=== PATIENT | female | born 2000 | race Caucasian/White ===

== ENCOUNTER 2020-04-02 07:43 | Inpatient (IN) | payer OTHER ==
[~2020-04-02] VITALS: Ht 160 cm; Wt 75.6 kg
[2020-04-02] VITALS (18 sets, daily range): BP systolic 90–115; BP diastolic 51–67
[2020-04-02] MEDS ORDERED: PRENTAB9 PO (08:05)
[2020-04-02] MEDS ORDERED: LACTATED RINGER'S 1000 ML IV STA (09:03)
[2020-04-02] MEDS ORDERED: OXYTOCIN DRIP 30 UNITS in IV 1 EA IV SCH (09:15)
[2020-04-02 09:36] LABS: HEMATOCRIT 34.2 % (36.0-47.0); HEMOGLOBIN 11.3 g/dl (12.0-15.5); MEAN CORPUSCULAR HEMOGLOBIN 31.8 pg (27.0-33.0); MEAN CORPUSCULAR VOLUME 96.3 fl (80.0-96.0); PLATELET COUNT, AUTOMATED 180 10^3/uL (150-450); RED BLOOD COUNT 3.55 10^6/uL (4.00-5.40); WHITE BLOOD COUNT 12.1 10^3/uL (4.0-10.0)
--- NOTE | 2020-04-02 10:00 | HPEPDOC ---
Obstetrical History & Physical General Date of Admission Apr 02, 2020 at 07:43 History of Present Illness 19 yo at 39w0d with ANDREA of 09 APR 2020 presents to L&D for IOL for IUGR. He r is also complicated by circumvallate placenta. She is feeling well and is without any complaints at this time. She denies contractions, leaking of fluid, vaginal bleeding, and reports positive movement. Chief Complaint: Other (IOL for IUGR) Information Provided By: Patient Age: 19 : 1 Term: 0 Pre-term: 0 Abortions: 0 Livin Care Care: Good Care Dating Final EDC: Apr 09, 2020 Final EDC for Daily Update: Apr 09, 2020 Final EDC by: 1st trimester (US) LMP: July 04, 2019 1st Trimester Date: Sep 30, 2019 Weeks + Days: 12 (+4) Estimated Date of Confinement: Apr 09, 2020 EGA at Admission: 39 (+0) Antepartum Course Height (inches): 63 Pre- weight (lbs.): 130 Admission Weight (lbs.): 161 Change in Weight (lbs.): 31 Past Medical History Past Obstetrical History : Past Obstetrical History: Primgravida [employer] History: No pertinent history Past Medical History Medical History Hx of asthma in childhood, seizures in childhood, hx of syncope as a teen, and hx of marijuana use as a teen Surgical History: Tonsilectomy Family History Significant Family History: No pertinent family hx Social History Marital Status: Family situation: Spouse/partner home Psychosocial History: No pertinent psych hx * Smoker: non-smoker Alcohol: Denies Drugs: denies Abuse Violence Screening Have you been hit/kicked/slapp: No Have you been sexually assault: No Imunizations Tdap status: current Allergies Coded Allergies: aspirin (Verified Adverse Reaction, Mild, ITCHING, 04/02/20) codeine (Verified Adverse Reaction, Mild, ITCHING, 04/02/20) Medications Scheduled No.137/Iron/Folic Acd ( Vitamin Tablet) 1 Each Tablet, 1 TAB PO DAILY Physical Examination Physical Examination GENERAL: Alert and oriented times three. BREAST: . ABDOMEN: Gravid and non-tender to touch. FETUS: Is vertex (VTX) by sterile vaginal examination (SVE), fetus is vertex (VTX) by Toño. HEART RATE: Regular rate and rhythm. LUNGS: Clear to auscultation (CTA). EXTREMITIES: No edema. No clonus. Deep tendon reflexes (DTRs) + 2. Laboratory Data 24H LABS Laboratory Tests 2 04/02/20 07:58: Serology Scanned Report Hepatitis B Testing Pertinent Laboratoy Data Blood Type: O+ RBC Antibody Screen: Negative HIV: Negative Hepatitis B: Negative Rapid Plasma Reagin: Nonreactive Rubella: Immune Varicella: Immune Chlamydia/Gonorrhea: Negative Group B Streptococcus: Negative Quad Screen Test: Negative Cystic Fibrosis: Negative Glucose Tolerance Test: 131 Steroid Therapy Steroid Therapy: No Vaginal Examination Dilation: None Effacement: 50% Station: -3 Cervical Consistency: Firm Cervical Position: Posterior Presentation: Cephalic presentation Position: Vertex (occiput) Assessment Heart Rate (FHR): 135 Variability: Moderate Accelerations: Present Decelerations: None Tocometer Contractions: No Multi-drug resistant Organism: No history of MDRO Assessment/Plan Assessment 19 yo at 39w0d with ANDREA of 09 APR 2020 presents to L&D for IOL for IUGR. She is feeling well and is without any complaints at this time. She denies contractions, leaking of fluid, vaginal bleeding, and reports positive movement. Plan Admit and orient. Racecar Driver and consent. Diet: clear liquids. Group B Streptococcus (GBS) negative. Labs and intravenous (IV) per unit protocol. Counseled on Pitocin and induction of labor (IOL). Lactated Ringers (LR): Bolus 1000 mL, then at 125 mL/hr. Will start with TINT LAYER x30 minutes, if TINT LAYER is negative, then will proceed with cytotec Anticipate normal spontaneous delivery (). C-S as appropriate. Labor and Delivery Counseling Discussed TINT LAYER, IOL methods, cytotec, cook balloon, and pitocin. Discussed increased risk of section given IUGR. We also discussed risk of PPH. All questions were answered, patient and spouse had no further questions. ALLI RAMOS CNM Apr 02, 2020 09:09
[2020-04-02] MEDS: miSOPROStol 25MCG 1/4 TABLET PV PRN ×2 (10:21→15:01)
[2020-04-02] MEDS: LR 1,000 ML IV SCH ×2 (11:23→19:19)
--- NOTE | 2020-04-02 15:09 | IPNPDOC ---
Obstetrical Progress Note Date of Service Apr 02, 2020 Subjective 19 yo at 39w0d with ANDREA of 09 APR 2020 admitted for IOL for IUGR. She has no complaints at this time. She has supportive family at this time. Objective Vital Signs Date Time Temp Pulse Resp B/P (MAP) Pulse Ox O2 Delivery O2 Flow Rate FiO2 04/02/20 13:31 98.6 95 18 102/63 (76) Cook balloon placed without difficulty at 1500 with 80/80 infused into each of the uterine and vaginal balloons with cytotec 25 mcg placed on the cervix between the balloons. Patient tolerated procedure well. Assessment Heart Rate (FHR): 145 Variability: Moderate Accelerations: Present Decelerations: None Tocometer Contractions: Yes Frequency: irregular Duration: other (every 3-6 minutes) Sterile Vaginal Examination Dilation: 1cm Effacement (%): 50% Station: -3 Cervical Consistency: Medium Cervical Position: Posterior Postion/Presentation: Cephalic presentation Assessment and Plan Age: 19 : 1 Term: 0 Pre-term: 0 Abortions: 0 Livin EGA at Admission: 39 (+0) Weeks & Days 39w0d Status: Reassuring Group B Streptococcus: Negative Anticipate: Vaginal Delivery ALLI RAMOS CNM Apr 02, 2020 15:04
[2020-04-02] MEDS ORDERED: PROMETHAZINE INJ 25 MG/ML VIAL (J2550) IV PRN (15:15)
[2020-04-02] MEDS: BUTORPHANOL 2 MG/ML INJ (J0595) IV PRN (20:00)
--- NOTE | 2020-04-02 20:05 | IPNPDOC ---
Text Note Date of Service The patient was seen on 04/02/20. NOTE Patient seen this evening at the bedside with RN. Lisa reports feeling uncomfortable and desires IV pain medication. Cook balloon remains in place. FHR tracing: Cat I with moderate variability, +accels, no decels, ctx Q3-7 minutes Last dose of cytotec >4 hours ago. Plan to start low dose pitocin. Not to increase above 10mU while cook balloon in place. Stadol and phenergan ordered for pain per patient's request. All patient questions answered. DO Santhosh VS,Shanice, I+O VS, Shanice, I+O Laboratory Tests 04/02/20 09:26 Vital Signs Date Time Temp Pulse Resp B/P (MAP) Pulse Ox O2 Delivery O2 Flow Rate FiO2 04/02/20 20:00 18 04/02/20 17:31 98.2 96 108/67 (81) MARYAM LEONE DO Apr 02, 2020 20:05
[2020-04-03] VITALS (55 sets, daily range): BP systolic 84–131; BP diastolic 46–76
[2020-04-03] MEDS: BUTORPHANOL 2 MG/ML INJ (J0595) IV PRN (00:10)
[2020-04-03] MEDS: LR 1,000 ML IV SCH ×4 (04:24→19:23)
--- NOTE | 2020-04-03 06:19 | IPNPDOC ---
Text Note Date of Service The patient was seen on 04/03/20. NOTE Patient seen and examined at the bedside with RN. Lisa reports feeling relief from Stadol previously. But she is still uncomfortable. Pitocin is at 8mU. Hollingsworth bulb delfated and removed at the bedside. Cervix: 4/75/-3. FHR: Cat I with moderate variability, +accels, no decels. Ctx irregular. Continue pitocin and titrate up to max dose. Patient may have epidural if and when desired. All patient questions answered. Maryam Leone DO VS,Shanice, I+O VS, Shanice, I+O Laboratory Tests 04/02/20 09:26 Vital Signs Date Time Temp Pulse Resp B/P (MAP) Pulse Ox O2 Delivery O2 Flow Rate FiO2 04/03/20 04:31 80 18 98/51 (67) 04/03/20 03:32 97.9 I&O- Last 24 Hours up to 6 AM 04/03/20 06:00 Intake Total 1800 ml Output Total 4025 ml Balance -2225 ml MARYAM LEONE DO Apr 03, 2020 06:19
--- NOTE | 2020-04-03 10:18 | IPNPDOC ---
Text Note Date of Service The patient was seen on 04/03/20. NOTE 04/03/20 patient requesting pain management review patient is 19 y.o at 39 .1 weeks IOL for IUGR. Has circumvallate placenta. On Pitocin still 4 cm posterior -3 bulging bag 70% effaced . Category 1 strip Still has low bp . Plan epidural after which AROM .EXPRESSED understanding plan of care safe to proceed VS,Fishbone, I+O VS, Fishbone, I+O Vital Signs Date Time Temp Pulse Resp B/P (MAP) Pulse Ox O2 Delivery O2 Flow Rate FiO2 04/03/20 08:27 97.9 04/03/20 08:01 74 18 115/63 (80) I&O- Last 24 Hours up to 6 AM 04/03/20 06:00 Intake Total 1800 ml Output Total 4525 ml Balance -2725 ml Cheo Jacobs MD Apr 03, 2020 10:18
[2020-04-03] MEDS ORDERED: LACTATED RINGER'S 1000 ML IV PRN (11:00)
[2020-04-03] MEDS ORDERED: ePHEDrine SULFATE 25 MG/5 ML(5MG/ML) SYRINGE IV PRN (11:00)
[2020-04-03] MEDS ORDERED: diphenhydrAMINE 50MG/ML VIAL (J1200) IV PRN (11:00)
[2020-04-03] MEDS ORDERED: ONDANSETRON 4MG/2ML VIAL IV PRN (11:00)
[2020-04-03] MEDS ORDERED: NALOXONE INJ 0.4MG/1ML VIAL (J2310 PER 1MG) IV PRN (11:00)
[2020-04-03] MEDS ORDERED: EPIDURAL COMMENT XX SCH (11:00)
[2020-04-03] MEDS ORDERED: REFRIGERATOR IV KEYS XX PRN (11:00)
[2020-04-03] MEDS ORDERED: FENTANYL 2MCG/ML ROPIVACAINE 0.2% IN 0.9% NACL 100ML IVBAG As Ordered ONE (11:00)
[2020-04-03] MEDS ORDERED: EPIDURAL/PCA KEYS XX PRN (11:00)
[2020-04-03] MEDS: FENTANYL/ROPIVACAINE/NACL BAG 100 ML EPIDURAL SCH ×2 (11:20→22:43)
--- NOTE | 2020-04-03 14:06 | IPNPDOC ---
Text Note Date of Service The patient was seen on 04/03/20. NOTE 1400 hours assessment post epidural 4 cm anterior -3 station AROM CLEAR FLUID OT CLOTS NOTED POST AROM CATEGORY 1 STRIP SAFE TO PROCEED VS,Fishbone, I+O VS, Fishbone, I+O Vital Signs Date Time Temp Pulse Resp B/P (MAP) Pulse Ox O2 Delivery O2 Flow Rate FiO2 04/03/20 12:11 73 18 109/59 (76) 04/03/20 11:54 98.0 I&O- Last 24 Hours up to 6 AM 04/03/20 06:00 Intake Total 1800 ml Output Total 4525 ml Balance -2725 ml Cheo Jacobs MD Apr 03, 2020 14:06
[2020-04-04] VITALS (9 sets, daily range): BP systolic 102–131; BP diastolic 60–77
[2020-04-04 01:11] LABS: CORD GAS HCO3 V 17.1 MEQ/L; CORD GAS O2 SAT V 76.5 %; CORD GAS PCO2 V 28.2 mmHg; CORD GAS PH V 7.4 UNITS; CORD GAS PO2 V 32.1 mmHg; CORD GAS SBC V 19.1 MEQ/L; CORD GAS TCO2 V 17.9 MEQ/L
[2020-04-04] MEDS ORDERED: METHYLERGONOVINE MALEATE 0.2 MG/ML VIAL (J2210) IM STA (01:12)
[2020-04-04] MEDS ORDERED: LR 1,000 ML IV SCH (01:52)
[2020-04-04] MEDS ORDERED: BENZOCAINE 20% HEMORRHOIDAL OINTMENT 28GM TUBE TOP PRN (02:00)
[2020-04-04] MEDS ORDERED: MOM 30ML SUSPENSION UDC PO PRN (02:00)
[2020-04-04] MEDS ORDERED: METHYLERGONOVINE MALEATE 0.2 MG TAB PO SCH (02:00)
[2020-04-04] MEDS ORDERED: OXYTOCIN DRIP 30 UNITS in IV 1 EA IV ONE (02:00)
[2020-04-04] MEDS ORDERED: DOCUSATE SODIUM 100MG CAPSULE PO PRN (02:00)
[2020-04-04] MEDS ORDERED: ANUSOL HC CREAM 30GM TOP PRN (02:00)
[2020-04-04] MEDS ORDERED: MEASLES,MUMPS,RUBELLA VACCINE INJ (MMR-II) (90707) SC SCH (02:00)
[2020-04-04] MEDS ORDERED: RHOGAM 300 MCG (1500 IU) INJ (J2790) IM SCH (02:00)
[2020-04-04] MEDS ORDERED: OXYTOCIN INJ 10 UNITS/ML VIAL (J2590) IV ONE (02:00)
--- NOTE | 2020-04-04 02:15 | DNPDOC ---
[facility] Delivery Note Delivery Note Item Value Date Time White Blood Count 12.1 10^3/uL H 04/02/20925 Red Blood Count 3.55 10^6/uL L 04/02/20925 Hemoglobin 11.3 g/dl L 04/02/20925 Hematocrit 34.2 % L 04/02/20925 Mean Corpuscular Volume 96.3 fl H 04/02/20925 Mean Corpuscular Hemoglobin 31.8 pg 04/02/20925 Mean Corpuscular Hemoglobin Concent 33.0 g/dl 04/02/20925 Red Cell Distribution Width 12.8 % 04/02/20925 Platelet Count 180 10^3/uL 04/02/20925 Item Value Date Time Cord Venous Blood pH 7.400 UNITS 04/04/2099 Cord Venous Blood PCO2 28.2 mmHg 04/04/2099 Cord Venous Blood PO2 32.1 mmHg 04/04/2099 Cord Venous Blood HCO3 17.1 MEQ/L 04/04/2099 Cord Venous Blood Total CO2 17.9 MEQ/L 04/04/2099 Cord Venous Base Excess (Actual) -6.0 04/04/2099 Cord Venous Base Excess (Standard) 19.1 MEQ/L 04/04/2099 Cord Venous Blood Oxygen Saturation 76.5 % 04/04/2099 DATE OF DELIVERY: 04/04/2020 PREDELIVERY DIAGNOSIS: IOL AT 39 WEEKS FOR IUGR AND CIRCUMVALLATE PLACENTA POST DELIVERY DIAGNOSIS: Delivered.ATONIC UTERUS PPH CIRCUMVALLATE PLACENTA ABRUPTIO PLACENTA PROCEDURE: [Spontaneous vaginal delivery INTACT PERINEUM INTERACTIVE DESIGNER: Dr. Jasbir DIEGO ANESTHESIA: IV MEDICATION AND EPIDURAL ESTIMATED BLOOD LOSS: 1500 mL. FINDINGS: 6 pound 6 ounce FEMALE , Score 8/9 , . DELIVERY SUMMARY: Patient is a 19 -year-old 1 now para 1 who was admitted to labor and delivery for IOL 39 WEEKS IUGR AND CIRCUMVALLATE PLACENTA , HAD LB FEMALE WITH ATONIC UTERUS AND PPH 1500 CC PITOCIN, CYTOTEC METHERGINE WELL CONTRACTED INTACT PERINEUM RECTAL SPHINCTER INTACT Cheo Diego MD Apr 04, 2020 02:13
[2020-04-04] MEDS ORDERED: OXYTOCIN INJ 10 UNITS/ML VIAL (J2590) As Ordered ONE (02:52)
[2020-04-04] MEDS ORDERED: OXYTOCIN DRIP 30 UNITS in IV 1 EA IV SCH (03:45)
[2020-04-04] MEDS: IBUPROFEN 600MG TAB PO PRN ×3 (04:12→17:31)
--- NOTE | 2020-04-04 07:46 | IPNPDOC ---
Text Note Date of Service The patient was seen on 04/04/20. NOTE Item Value Date Time White Blood Count 12.1 10^3/uL H 04/02/20925 Red Blood Count 3.55 10^6/uL L 04/02/20925 Hemoglobin 11.3 g/dl L 04/02/20925 Hematocrit 34.2 % L 04/02/20925 Mean Corpuscular Volume 96.3 fl H 04/02/20925 Mean Corpuscular Hemoglobin 31.8 pg 04/02/20925 Mean Corpuscular Hemoglobin Concent 33.0 g/dl 04/02/20925 Red Cell Distribution Width 12.8 % 04/02/20925 Platelet Count 180 10^3/uL 04/02/20925 Nucleated Red Blood Cells % (auto) 0.0 % 04/02/2092504/04/20 0700 19 YO DELIVERED AT 39.2 WEEKS AFTER PROLONGED IOL FOR IUGR AND CIRCUMVALLATE PLACENTA . HAD ATONIC UTERUS AND PPH 1500. TOCOLYTICS GIVEN NOW UNDER CONTROL WITH METHERGINE SERIES ONGOING CBC ORDERED TODAY . FEELING WELL NO ISSUES BREAST FEEDING MOBILIZED NO ORTHOSTATIC ISSUES WILL REVIEW CBC TODAY AND TOMORROW RE STABILITY OF H/H VS,Fishbone, I+O VS, Fishbone, I+O Vital Signs Date Time Temp Pulse Resp B/P (MAP) Pulse Ox O2 Delivery O2 Flow Rate FiO2 04/04/20 05:17 99.2 110 20 123/62 (82) 97 Room Air I&O- Last 24 Hours up to 6 AM 04/04/20 06:00 Intake Total 7245 ml Output Total 6250 ml Balance 995 ml Cheo Jacobs MD Apr 04, 2020 07:42
[2020-04-04 08:06] LABS: MEAN CORPUSCULAR HGB CONC 33.2 g/dl (32.0-36.5); MEAN CORPUSCULAR VOLUME 96.2 fl (80.0-96.0); PLATELET COUNT, AUTOMATED 164 10^3/uL (150-450); RED BLOOD COUNT 2.91 10^6/uL (4.00-5.40); WHITE BLOOD COUNT 21.5 10^3/uL (4.0-10.0)
[2020-04-04 08:28] LABS: HEMOGLOBIN 9.3 g/dl (12.0-15.5)
[2020-04-04] MEDS: LR 1,000 ML IV SCH ×2 (09:03→17:03)
[2020-04-04] MEDS: PRENATAL VITAMINS CHEWABLE TABLET PO SCH (10:43)
[2020-04-05] MEDS: LR 1,000 ML IV SCH (01:03)
[2020-04-05 06:00] VITALS: BP 117/57
[2020-04-05] MEDS: PRENATAL VITAMINS CHEWABLE TABLET PO SCH (08:19)
--- NOTE | 2020-04-05 09:28 | IPNPDOC ---
Progress Note Date of Service: Apr 05, 2020 Day#: 1 Progress Note SUBJECT: Lisa is a 19-year-old 1 now Para 1 status post spontaneous vaginal delivery complicated by hemorrhage at 39-2/7 weeks' on 04Apr2020 of a female 6 pounds 6 ounces (2880 grams) with post vaginal laceration and repair, doing well day # 1. She has been ambulating, voiding spontaneously without issue and tolerating regular diet. Breast feeding with nipple toro. Reports lochia is [like a normal period]. Patient is amb ulating well. [Reports some cramping with . Denies any pain. Voiding without difficulty]. OBJECTIVE: VITAL SIGNS: Within normal limits, afebrile. Alert and oriented times three. Breath sounds clear to auscultation. Heart rate: Regular rate and rhythm, no murmurs, rubs or gallops. Abdomen: Fundus firm at U-1. Soft, NTTP. small lochia. ASSESSMENT: Lisa is a 19-year-old 1 now Para 1 status spontaneous vaginal delivery complicated by 1500ml EBL at 39-2/7 weeks', doing well on day 1. Vitals within normal limits, afebrile, hemodynamically stable with no evidence of infection. PLAN: 1. Discharge to home on day 2 pp. 2. Tylenol and Motrin for pain. 3. Encourage breast feeding and ambulation. 4. assist with feeding as needed VS, I&O, 24H, Fishbone Vital Signs/I&O Vital Signs Date Time Temp Pulse Resp B/P (MAP) Pulse Ox O2 Delivery O2 Flow Rate FiO2 04/05/20 06:00 96.9 84 16 117/57 (77 98 Room Air I&O- Last 24 Hours up to 6 AM 04/05/20 06:00 Output Total 600 ml Balance -600 ml KAREEN ISLAS CNM Apr 05, 2020 09:28
[2020-04-05 18:00] VITALS: BP 111/57
[2020-04-06 06:00] VITALS: BP 117/73
--- NOTE | 2020-04-06 06:51 | IPNPDOC ---
Progress Note Date of Service: Apr 06, 2020 Day#: 2 Progress Note SUBJECT: Lisa is a 19-year-old 1 now Para 1 status post spontaneous vaginal delivery complicated by hemorrhage at 39-2/7 weeks' on 04Apr2020 of a female 6 pounds 6 ounces (2880 grams) with post vaginal laceration and repair, doing well day # 2. She has been ambulating, voiding spontaneously without issue and tolerating regular diet. Breast feeding with nipple toro. Reports lochia is minimal. OBJECTIVE: VITAL SIGNS: Within normal limits, afebrile. Alert and oriented times three. normal work of breathing Heart rate: Regular rate and rhythm, Abdomen: Fundus firm at U-1. Soft, NTTP. small lochia. ASSESSMENT: Lisa is a 19-year-old 1 now Para 1 status spontaneous vaginal delivery complicated by 1500ml EBL at 39-2/7 weeks', doing well on day 2. Vitals within normal limits, afebrile, hemodynamically stable with no evidence of infection. PLAN: 1. Discharge to home on day 2 pp. 2. Tylenol and Motrin for pain. 3. Encourage breast feeding and ambulation. 4. using minipill for contraception 4. assist with feeding as needed VS, I&O, 24H, Fishbone Vital Signs/I&O Vital Signs Date Time Temp Pulse Resp B/P (MAP) Pulse Ox O2 Delivery O2 Flow Rate FiO2 04/05/20 18:00 97.8 79 18 111/57 (75) 98 04/05/20 06:00 Room Air JOSEFINA ACUNA MD Apr 06, 2020 06:02
[2020-04-06] MEDS ORDERED: DOK1CAP7 PO (06:53)
[2020-04-06] MEDS: PRENATAL VITAMINS CHEWABLE TABLET PO SCH (07:48)
== END 2020-04-06 12:00 | disposition home or self-care (01) | DRG 806 ==
LOC: M LDI 07:43 → M OBS 04-04 05:10
PROVIDERS: ADMIT Registered Nurse Maternal Newborn; ATTEND Obstetrics & Gynecology
PROC: 3E0P7GC Introduction of Other Therapeutic Substance into Female Reproductive, Via Natural or Artificial Opening (ICD-10-PCS; 2020-04-02)
PROC: 10907ZC Drainage of Amniotic Fluid, Therapeutic from Products of Conception, Via Natural or Artificial Opening (ICD-10-PCS; 2020-04-03)
PROC: 10E0XZZ Delivery of Products of Conception, External Approach (ICD-10-PCS; principal; 2020-04-04)
DX: O36.5930 Maternal care for other known or suspected poor fetal growth, third trimester, not applicable or unspecified (principal); Z37.0 Single live birth; O72.1 Other immediate postpartum hemorrhage; Z3A.39 39 weeks gestation of pregnancy; O43.113 Circumvallate placenta, third trimester